=== PATIENT | female | born 1945 | race Caucasian/White ===

== ENCOUNTER 2016-03-17 14:00 | Outpatient (CLI) | payer MEDICARE | END 2016-03-17 14:01 | disposition home or self-care (01) | DX: D68.51 Activated protein C resistance (principal); Z79.01 Long term (current) use of anticoagulants ==

== ENCOUNTER 2016-03-20 10:03 | Outpatient (CLI) | payer MEDICARE | END 2016-03-20 10:04 | disposition home or self-care (01) | DX: D68.51 Activated protein C resistance (principal); Z79.01 Long term (current) use of anticoagulants ==

== ENCOUNTER 2016-04-01 14:30 | Outpatient (CLI) | payer MEDICARE | END 2016-04-01 14:31 | disposition home or self-care (01) | DX: D68.51 Activated protein C resistance (principal); Z79.01 Long term (current) use of anticoagulants ==

== ENCOUNTER 2016-04-08 15:05 | Outpatient (CLI) | payer MEDICARE | END 2016-04-08 15:06 | disposition home or self-care (01) | DX: D68.51 Activated protein C resistance (principal); Z79.01 Long term (current) use of anticoagulants ==

== ENCOUNTER 2016-04-16 14:34 | Outpatient (CLI) | payer MEDICARE | END 2016-04-16 14:35 | disposition home or self-care (01) | DX: Z79.01 Long term (current) use of anticoagulants (principal) ==

== ENCOUNTER 2016-04-23 14:23 | Outpatient (CLI) | payer MEDICARE | END 2016-04-23 14:24 | disposition home or self-care (01) | DX: D68.51 Activated protein C resistance (principal); Z79.01 Long term (current) use of anticoagulants ==

== ENCOUNTER 2016-05-07 10:54 | Outpatient (CLI) | payer MEDICARE | END 2016-05-07 10:55 | disposition home or self-care (01) | DX: D68.51 Activated protein C resistance (principal); Z79.01 Long term (current) use of anticoagulants ==

== ENCOUNTER 2016-05-14 13:05 | Outpatient (CLI) | payer MEDICARE | END 2016-05-14 13:06 | disposition home or self-care (01) | DX: D68.51 Activated protein C resistance (principal); Z79.01 Long term (current) use of anticoagulants ==

== ENCOUNTER 2016-05-28 13:17 | Outpatient (CLI) | payer MEDICARE | END 2016-05-28 13:18 | disposition home or self-care (01) | DX: D68.51 Activated protein C resistance (principal); Z79.01 Long term (current) use of anticoagulants ==

== ENCOUNTER 2016-06-08 11:09 | Outpatient (CLI) | payer MEDICARE | END 2016-06-08 11:10 | disposition home or self-care (01) | DX: D68.51 Activated protein C resistance (principal); Z79.01 Long term (current) use of anticoagulants ==

== ENCOUNTER 2016-06-23 12:52 | Outpatient (CLI) | payer MEDICARE | END 2016-06-23 12:53 | disposition home or self-care (01) | DX: D68.51 Activated protein C resistance (principal); Z79.01 Long term (current) use of anticoagulants ==

== ENCOUNTER 2016-07-10 08:00 | Outpatient (CLI) | payer MEDICARE | END 2016-07-10 08:01 | disposition home or self-care (01) | DX: D68.51 Activated protein C resistance (principal); Z79.01 Long term (current) use of anticoagulants ==

== ENCOUNTER 2016-07-27 14:37 | Outpatient (CLI) | payer MEDICARE | END 2016-07-27 14:38 | disposition home or self-care (01) | DX: D68.51 Activated protein C resistance (principal); Z79.01 Long term (current) use of anticoagulants ==

== ENCOUNTER 2016-08-11 12:41 | Outpatient (CLI) | payer MEDICARE | END 2016-08-11 12:42 | disposition home or self-care (01) | LOC: LAB.F 12:41 | PROVIDERS: ATTEND Internal Medicine | DX: D68.51 Activated protein C resistance (principal) | CPT/HCPCS: 85610 ==

== ENCOUNTER 2016-08-26 13:37 | Outpatient (CLI) | payer MEDICARE | END 2016-08-26 13:38 | disposition home or self-care (01) | LOC: LAB.F 13:37 | PROVIDERS: ATTEND Registered Nurse | DX: D68.51 Activated protein C resistance (principal) | CPT/HCPCS: 85610 ==

== ENCOUNTER 2016-08-27 17:14 | Outpatient (CLI) | payer MEDICARE ==
--- NOTE | 2016-08-28 10:15 | XRAY Report ---
TWO VIEW THORACIC SPINE: 08/27/2016 CLINICAL INDICATION: Pain. FINDINGS: Frontal and lateral standing views of the thoracic spine demonstrate moderate degenerative disk disease. There is no evidence of acute fracture. No paraspinal hematoma is seen. IMPRESSION: MODERATE DEGENERATIVE CHANGES. NO EVIDENCE OF ACUTE FRACTURE. JOB #: [id number] EXT JOB #:[id number]
--- NOTE | 2016-08-28 10:16 | XRAY Report ---
TWO-VIEW LUMBAR SPINE: 08/27/2016 CLINICAL INDICATION: Pain. FINDINGS: Frontal and lateral standing views of the lumbar spine demonstrate moderate degenerative d isc and facet disease, with mild degenerative levoscoliosis. There is no evidence of compression fra cture. Vascular calcifications are noted. The bowel gas pattern is normal. Postoperative changes o f cholecystectomy are noted. IMPRESSION: MODERATE DEGENERATIVE CHANGES, WITH MILD DEGENERATIVE LEVOSCOLIOSIS. JOB #: [id number] EXT JOB #:[id number]
== END 2016-08-27 17:15 | disposition home or self-care (01) ==
LOC: DI 17:14
PROVIDERS: ATTEND Nurse Practitioner Family
DX: M51.36 Other intervertebral disc degeneration, lumbar region (principal); M47.896 Other spondylosis, lumbar region; M41.56 Other secondary scoliosis, lumbar region; M51.34 Other intervertebral disc degeneration, thoracic region
CPT/HCPCS: 72070; 72100

== ENCOUNTER 2016-09-07 14:36 | Outpatient (CLI) | payer MEDICARE | END 2016-09-07 14:37 | disposition home or self-care (01) | LOC: LAB.F 14:36 | PROVIDERS: ATTEND Internal Medicine | DX: D68.51 Activated protein C resistance (principal) | CPT/HCPCS: 85610 ==

== ENCOUNTER 2016-10-12 14:24 | Outpatient (CLI) | payer MEDICARE | END 2016-10-12 14:25 | disposition home or self-care (01) | LOC: LAB.R 14:24 | PROVIDERS: ATTEND Internal Medicine | DX: D68.51 Activated protein C resistance (principal) | CPT/HCPCS: 85610 ==

== ENCOUNTER 2016-10-20 13:09 | Outpatient (CLI) | payer MEDICARE | END 2016-10-20 13:10 | disposition home or self-care (01) | LOC: LAB.F 13:09 | PROVIDERS: ATTEND Registered Nurse | DX: D68.51 Activated protein C resistance (principal) | CPT/HCPCS: 85610 ==

== ENCOUNTER 2016-11-02 13:05 | Outpatient (CLI) | payer MEDICARE | END 2016-11-02 13:06 | disposition home or self-care (01) | LOC: LAB.F 13:05 | PROVIDERS: ATTEND Internal Medicine | DX: D68.51 Activated protein C resistance (principal) | CPT/HCPCS: 85610 ==

== ENCOUNTER 2016-11-10 11:52 | Outpatient (CLI) | payer MEDICARE ==
--- NOTE | 2016-11-11 14:21 | Mammography Report ---
DIGITAL SCREENING MAMMOGRAM: 11/10/2016 CLINICAL INDICATION: A 71-year-old with history of benign biopsy, for screening. COMPARISON: 08/2015, 04/2014, 04/2013, 02/2012, 02/2010. TECHNIQUE: Routine CC and MLO projections were obtained of the breasts. Bilateral laterally exaggera anand craniocaudal views. FINDINGS: Scattered fibroglandular tissue is present within the breasts. There are no dominant mychal s, suspicious microcalcifications, or secondary signs of malignancy. In comparison to the previous st udies, there are no significant changes. ASSESSMENT: NO MAMMOGRAPHIC EVIDENCE OF MALIGNANCY. NO SIGNIFICANT INTERVAL CHANGES. RECOMMENDATION: Screening mammography is recommended annually. BIRADS category 1 - negative. STANDARD QUALIFYING STATEMENTS 1. This examination was reviewed with the aid of Computed-Aided Detection (CAD). 2. A negative or benign imaging report should not delay biopsy if clinically suspicious findings are present. Consider surgical consultation if warranted. More than 5% of cancers are not identified by i maging. 3. Dense breasts may obscure an underlying neoplasm. JOB #: [id number] EXT JOB #:[id number]
== END 2016-11-10 11:53 | disposition home or self-care (01) ==
LOC: DI.S 11:52
PROVIDERS: ATTEND Registered Nurse
DX: Z12.31 Encounter for screening mammogram for malignant neoplasm of breast (principal)
CPT/HCPCS: 77067

== ENCOUNTER 2016-11-20 10:53 | Outpatient (CLI) | payer MEDICARE | END 2016-11-20 10:54 | disposition home or self-care (01) | LOC: LAB.F 10:53 | PROVIDERS: ATTEND Internal Medicine | DX: D68.51 Activated protein C resistance (principal); Z79.01 Long term (current) use of anticoagulants | CPT/HCPCS: 85610 ==

== ENCOUNTER 2016-11-27 11:03 | Outpatient (CLI) | payer MEDICARE | END 2016-11-27 11:04 | disposition home or self-care (01) | LOC: LAB.F 11:03 | PROVIDERS: ATTEND Internal Medicine | DX: D68.51 Activated protein C resistance (principal); Z79.01 Long term (current) use of anticoagulants | CPT/HCPCS: 85610 ==

== ENCOUNTER 2016-12-04 12:56 | Outpatient (CLI) | payer MEDICARE | END 2016-12-04 12:57 | disposition home or self-care (01) | LOC: LAB.F 12:56 | PROVIDERS: ATTEND Internal Medicine | DX: D68.51 Activated protein C resistance (principal); Z79.01 Long term (current) use of anticoagulants | CPT/HCPCS: 85610 ==

== ENCOUNTER 2016-12-11 15:01 | Outpatient (CLI) | payer MEDICARE | END 2016-12-11 15:02 | disposition home or self-care (01) | LOC: LAB.F 15:01 | PROVIDERS: ATTEND Internal Medicine | DX: D68.51 Activated protein C resistance (principal); Z79.01 Long term (current) use of anticoagulants | CPT/HCPCS: 85610 ==

== ENCOUNTER 2016-12-18 13:09 | Outpatient (CLI) | payer MEDICARE | END 2016-12-18 13:10 | disposition home or self-care (01) | LOC: LAB.F 13:09 | PROVIDERS: ATTEND Internal Medicine | DX: D68.51 Activated protein C resistance (principal); Z79.01 Long term (current) use of anticoagulants | CPT/HCPCS: 85610 ==

== ENCOUNTER 2016-12-29 08:17 | Outpatient (CLI) | payer MEDICARE | END 2016-12-29 08:18 | disposition home or self-care (01) | LOC: LAB.F 08:17 | PROVIDERS: ATTEND Internal Medicine | DX: D68.51 Activated protein C resistance (principal); Z79.01 Long term (current) use of anticoagulants | CPT/HCPCS: 85610 ==

== ENCOUNTER 2017-01-04 13:09 | Outpatient (CLI) | payer MEDICARE | END 2017-01-04 13:10 | disposition home or self-care (01) | LOC: LAB.F 13:09 | PROVIDERS: ATTEND Internal Medicine | DX: D68.51 Activated protein C resistance (principal); Z79.01 Long term (current) use of anticoagulants | CPT/HCPCS: 85610 ==

== ENCOUNTER 2017-03-03 10:43 | Outpatient (CLI) | payer MEDICARE | END 2017-03-03 10:44 | disposition home or self-care (01) | LOC: LAB.F 10:43 | PROVIDERS: ATTEND Internal Medicine | DX: D68.51 Activated protein C resistance (principal); Z79.01 Long term (current) use of anticoagulants | CPT/HCPCS: 85610 ==

== ENCOUNTER 2017-03-24 15:52 | Outpatient (CLI) | payer MEDICARE | END 2017-03-24 15:53 | LOC: LAB.F 15:52 | PROVIDERS: ATTEND Internal Medicine | DX: D68.51 Activated protein C resistance (principal); Z79.01 Long term (current) use of anticoagulants | CPT/HCPCS: 85610 ==

== ENCOUNTER 2017-04-02 09:29 | Outpatient (CLI) | payer MEDICARE | END 2017-04-02 09:30 | disposition home or self-care (01) | LOC: LAB.F 09:29 | PROVIDERS: ATTEND Internal Medicine | DX: D68.51 Activated protein C resistance (principal); Z79.01 Long term (current) use of anticoagulants | CPT/HCPCS: 85610 ==

== ENCOUNTER 2017-04-12 15:02 | Outpatient (CLI) | payer MEDICARE | END 2017-04-12 15:03 | disposition home or self-care (01) | LOC: LAB.F 15:02 | PROVIDERS: ATTEND Internal Medicine | DX: D68.51 Activated protein C resistance (principal); Z79.01 Long term (current) use of anticoagulants | CPT/HCPCS: 85610 ==

== ENCOUNTER 2017-04-28 10:05 | Outpatient (CLI) | payer MEDICARE | END 2017-04-28 10:06 | disposition home or self-care (01) | LOC: LAB.F 10:05 | PROVIDERS: ATTEND Internal Medicine | DX: D68.51 Activated protein C resistance (principal); Z79.01 Long term (current) use of anticoagulants | CPT/HCPCS: 85610 ==

== ENCOUNTER 2017-05-10 10:40 | Outpatient (CLI) | payer MEDICARE | END 2017-05-10 10:41 | disposition home or self-care (01) | LOC: LAB.F 10:40 | PROVIDERS: ATTEND Registered Nurse | DX: D68.51 Activated protein C resistance (principal); Z79.01 Long term (current) use of anticoagulants | CPT/HCPCS: 85610 ==

== ENCOUNTER 2017-06-01 13:30 | Outpatient (CLI) | payer MEDICARE | END 2017-06-01 13:31 | disposition home or self-care (01) | LOC: LAB.F 13:30 | PROVIDERS: ATTEND Internal Medicine | DX: D68.51 Activated protein C resistance (principal); Z79.01 Long term (current) use of anticoagulants | CPT/HCPCS: 85610 ==

== ENCOUNTER 2017-06-16 14:21 | Outpatient (CLI) | payer MEDICARE | END 2017-06-16 14:22 | disposition home or self-care (01) | LOC: LAB.F 14:21 | PROVIDERS: ATTEND Internal Medicine | DX: D68.51 Activated protein C resistance (principal); Z79.01 Long term (current) use of anticoagulants | CPT/HCPCS: 85610 ==

== ENCOUNTER 2017-06-21 11:22 | Outpatient (CLI) | payer MEDICARE | END 2017-06-21 11:23 | disposition home or self-care (01) | LOC: LAB.F 11:22 | PROVIDERS: ATTEND Internal Medicine | DX: D68.51 Activated protein C resistance (principal); Z79.01 Long term (current) use of anticoagulants | CPT/HCPCS: 85610 ==

== ENCOUNTER 2017-07-05 13:10 | Outpatient (CLI) | payer MEDICARE | END 2017-07-05 13:11 | disposition home or self-care (01) | LOC: LAB.F 13:10 | PROVIDERS: ATTEND Internal Medicine | DX: D68.51 Activated protein C resistance (principal); Z79.01 Long term (current) use of anticoagulants | CPT/HCPCS: 85610 ==

== ENCOUNTER 2017-07-19 12:36 | Outpatient (CLI) | payer MEDICARE | END 2017-07-19 12:37 | disposition home or self-care (01) | LOC: LAB.F 12:36 | PROVIDERS: ATTEND Internal Medicine | DX: D68.51 Activated protein C resistance (principal); Z79.01 Long term (current) use of anticoagulants | CPT/HCPCS: 85610 ==

== ENCOUNTER 2017-08-11 13:31 | Outpatient (CLI) | payer MEDICARE | END 2017-08-11 13:32 | disposition home or self-care (01) | LOC: LAB.F 13:31 | PROVIDERS: ATTEND Internal Medicine | DX: D68.51 Activated protein C resistance (principal); Z79.01 Long term (current) use of anticoagulants | CPT/HCPCS: 85610 ==

== ENCOUNTER 2017-08-18 08:00 | Outpatient (CLI) | payer MEDICARE | END 2017-08-18 08:01 | disposition home or self-care (01) | LOC: LAB.F 08:00 | PROVIDERS: ATTEND Internal Medicine | DX: D68.51 Activated protein C resistance (principal); Z79.01 Long term (current) use of anticoagulants | CPT/HCPCS: 85610 ==

== ENCOUNTER 2017-09-29 14:25 | Outpatient (CLI) | payer MEDICARE | END 2017-09-29 14:26 | disposition home or self-care (01) | LOC: LAB.F 14:25 | PROVIDERS: ATTEND Internal Medicine | DX: D68.51 Activated protein C resistance (principal); Z79.01 Long term (current) use of anticoagulants | CPT/HCPCS: 85610 ==

== ENCOUNTER 2017-10-12 11:16 | Outpatient (CLI) | payer MEDICARE | END 2017-10-12 11:17 | disposition home or self-care (01) | LOC: LAB.F 11:16 | PROVIDERS: ATTEND Internal Medicine | DX: D68.51 Activated protein C resistance (principal); Z79.01 Long term (current) use of anticoagulants | CPT/HCPCS: 85610 ==

== ENCOUNTER 2017-10-27 10:00 | Outpatient (CLI) | payer MEDICARE | END 2017-10-27 10:01 | disposition home or self-care (01) | LOC: LAB.F 10:00 | PROVIDERS: ATTEND Internal Medicine | DX: D68.51 Activated protein C resistance (principal); Z79.01 Long term (current) use of anticoagulants | CPT/HCPCS: 85610 ==

== ENCOUNTER 2017-11-17 14:22 | Outpatient (CLI) | payer MEDICARE | END 2017-11-17 14:23 | disposition home or self-care (01) | LOC: LAB.F 14:22 | PROVIDERS: ATTEND Registered Nurse | DX: D68.51 Activated protein C resistance (principal); Z79.01 Long term (current) use of anticoagulants | CPT/HCPCS: 85610 ==

== ENCOUNTER 2018-01-04 13:28 | Outpatient (CLI) | payer MEDICARE | END 2018-01-04 13:29 | disposition home or self-care (01) | LOC: LAB.F 13:28 | PROVIDERS: ATTEND Registered Nurse | DX: D68.51 Activated protein C resistance (principal); Z79.01 Long term (current) use of anticoagulants | CPT/HCPCS: 85610 ==

== ENCOUNTER 2018-01-12 13:23 | Outpatient (CLI) | payer MEDICARE | END 2018-01-12 13:24 | disposition home or self-care (01) | LOC: LAB.F 13:23 | PROVIDERS: ATTEND Registered Nurse | DX: D68.51 Activated protein C resistance (principal); Z79.01 Long term (current) use of anticoagulants | CPT/HCPCS: 85610 ==

== ENCOUNTER 2018-01-21 14:11 | Outpatient (CLI) | payer MEDICARE ==
[2018-01-21 17:53] LABS: INR 3.2 (0.8-1.2); PT - PROTHROMBIN TIME 36.2 secs (9.9-12.6)
== END 2018-01-21 14:12 | disposition home or self-care (01) ==
LOC: LAB.F 14:11
PROVIDERS: ATTEND Registered Nurse
DX: Z79.01 Long term (current) use of anticoagulants (principal)
CPT/HCPCS: 36415; 85610

== ENCOUNTER 2018-02-14 13:31 | Outpatient (CLI) | payer MEDICARE | END 2018-02-14 13:32 | disposition home or self-care (01) | LOC: LAB.F 13:31 | PROVIDERS: ATTEND Registered Nurse | DX: D68.51 Activated protein C resistance (principal); Z79.01 Long term (current) use of anticoagulants | CPT/HCPCS: 85610 ==

== ENCOUNTER 2018-02-21 11:36 | Outpatient (CLI) | payer MEDICARE | END 2018-02-21 23:59 | disposition home or self-care (01) | LOC: LAB.S 11:36 | PROVIDERS: ATTEND Registered Nurse | DX: D68.51 Activated protein C resistance (principal); Z79.01 Long term (current) use of anticoagulants | CPT/HCPCS: 85610 ==

== ENCOUNTER 2018-03-01 13:47 | Outpatient (CLI) | payer MEDICARE | END 2018-03-01 13:48 | disposition home or self-care (01) | LOC: LAB.F 13:47 | PROVIDERS: ATTEND Registered Nurse | DX: D68.51 Activated protein C resistance (principal); Z79.01 Long term (current) use of anticoagulants | CPT/HCPCS: 85610 ==

== ENCOUNTER 2018-03-14 08:00 | Outpatient (CLI) | payer MEDICARE | END 2018-03-14 23:59 | disposition home or self-care (01) | LOC: LAB.S 08:00 | PROVIDERS: ATTEND Registered Nurse | DX: D68.51 Activated protein C resistance (principal) | CPT/HCPCS: 85610 ==

== ENCOUNTER 2018-03-25 15:49 | Outpatient (CLI) | payer MEDICARE | END 2018-03-25 15:50 | disposition home or self-care (01) | LOC: LAB.F 15:49 | PROVIDERS: ATTEND Registered Nurse | DX: D68.51 Activated protein C resistance (principal); Z79.01 Long term (current) use of anticoagulants | CPT/HCPCS: 85610 ==

== ENCOUNTER 2018-04-04 14:54 | Outpatient (CLI) | payer MEDICARE | END 2018-04-04 14:55 | disposition home or self-care (01) | LOC: LAB.F 14:54 | PROVIDERS: ATTEND Registered Nurse | DX: D68.51 Activated protein C resistance (principal); Z79.01 Long term (current) use of anticoagulants | CPT/HCPCS: 85610 ==

== ENCOUNTER 2018-04-14 13:32 | Outpatient (CLI) | payer MEDICARE | END 2018-04-14 13:33 | disposition home or self-care (01) | LOC: LAB.F 13:32 | PROVIDERS: ATTEND Registered Nurse | DX: D68.51 Activated protein C resistance (principal); Z79.01 Long term (current) use of anticoagulants | CPT/HCPCS: 85610 ==

== ENCOUNTER 2018-04-20 08:27 | Outpatient (CLI) | payer MEDICARE ==
--- NOTE | 2018-04-20 09:30 | Mammography Report ---
Reason: ENCOUNTER FOR SCREENING MAMMOGRAM FOR MALIGNANT NE Procedure Date: 04/20/2018 Accession Number: [id number] / [id number] Procedure: PAULO - Screening Mammo w/Bj CPT Code: FULL RESULT: EXAM: Screening Mammo w/Bj DATE: 04/20/2018 8:52 AM CLINICAL HISTORY: Routine screening. No reported personal history of breast cancer. Family history in sister at age 50 and a cousin at age 45 TECHNIQUE: Bilateral CC and MLO views were obtained. COMPARISON: 11/10/2016 through 04/19/2013 FINDINGS: The breasts demonstrate scattered fibroglandular densities bilaterally. Bilateral breasts: There are no suspicious masses, calcifications or areas of distortion. IMPRESSION: Negative examination RECOMMENDATION: Routine annual screening unless otherwise clinically indicated. BI-RADS CATEGORY 1: Negative STANDARD QUALIFYING STATEMENTS: 1. This examination was not reviewed with the aid of Computer-Aided Detection (CAD). 2. A negative or benign imaging report should not preclude biopsy if clinically suspicious findings are present. 3. Dense breasts may obscure an underlying neoplasm. 4. This examination was reviewed with the aid of 3D breast imaging (tomosynthesis).
== END 2018-04-20 08:28 | disposition home or self-care (01) ==
LOC: DI 08:27
PROVIDERS: ATTEND Registered Nurse
DX: Z12.31 Encounter for screening mammogram for malignant neoplasm of breast (principal); Z80.3 Family history of malignant neoplasm of breast
CPT/HCPCS: 77063; 77067

== ENCOUNTER 2018-05-02 08:43 | Outpatient (CLI) | payer MEDICARE | END 2018-05-02 08:44 | disposition home or self-care (01) | LOC: LAB.F 08:43 | PROVIDERS: ATTEND Registered Nurse | DX: D68.51 Activated protein C resistance (principal); Z79.01 Long term (current) use of anticoagulants | CPT/HCPCS: 85610 ==

== ENCOUNTER 2018-05-18 11:00 | Outpatient (CLI) | payer MEDICARE | END 2018-05-18 11:01 | disposition home or self-care (01) | LOC: LAB.F 11:00 | PROVIDERS: ATTEND Registered Nurse | DX: D68.51 Activated protein C resistance (principal); Z79.01 Long term (current) use of anticoagulants | CPT/HCPCS: 85610 ==

== ENCOUNTER 2018-05-26 13:21 | Outpatient (CLI) | payer MEDICARE | END 2018-05-26 13:22 | disposition home or self-care (01) | LOC: LAB.F 13:21 | PROVIDERS: ATTEND Registered Nurse | DX: D68.51 Activated protein C resistance (principal); Z79.01 Long term (current) use of anticoagulants | CPT/HCPCS: 85610 ==

== ENCOUNTER 2018-06-02 11:32 | Outpatient (CLI) | payer MEDICARE | END 2018-06-02 11:33 | disposition home or self-care (01) | LOC: LAB.F 11:32 | PROVIDERS: ATTEND Registered Nurse | DX: D68.51 Activated protein C resistance (principal); Z79.01 Long term (current) use of anticoagulants | CPT/HCPCS: 85610 ==

== ENCOUNTER 2018-06-17 13:43 | Outpatient (CLI) | payer MEDICARE | END 2018-06-17 13:44 | disposition home or self-care (01) | LOC: LAB.F 13:43 | PROVIDERS: ATTEND Registered Nurse | DX: D68.51 Activated protein C resistance (principal); Z79.01 Long term (current) use of anticoagulants | CPT/HCPCS: 85610 ==

== ENCOUNTER 2018-06-29 13:34 | Outpatient (CLI) | payer MEDICARE | END 2018-06-29 13:35 | disposition home or self-care (01) | LOC: LAB.F 13:34 | PROVIDERS: ATTEND Registered Nurse | DX: D68.51 Activated protein C resistance (principal); Z79.01 Long term (current) use of anticoagulants | CPT/HCPCS: 85610 ==

== ENCOUNTER 2018-08-01 13:12 | Outpatient (CLI) | payer MEDICARE | END 2018-08-01 13:13 | disposition home or self-care (01) | LOC: LAB 13:12 | PROVIDERS: ATTEND Registered Nurse | DX: D68.51 Activated protein C resistance (principal); Z79.01 Long term (current) use of anticoagulants | CPT/HCPCS: 85610 ==

== ENCOUNTER 2018-08-11 14:20 | Outpatient (CLI) | payer MEDICARE | END 2018-08-11 14:21 | disposition home or self-care (01) | LOC: LAB.F 14:20 | PROVIDERS: ATTEND Registered Nurse | DX: D68.51 Activated protein C resistance (principal); Z79.01 Long term (current) use of anticoagulants | CPT/HCPCS: 85610 ==

== ENCOUNTER 2018-08-23 12:39 | Outpatient (CLI) | payer MEDICARE | END 2018-08-23 12:40 | disposition home or self-care (01) | LOC: LAB.F 12:39 | PROVIDERS: ATTEND Registered Nurse | DX: D68.51 Activated protein C resistance (principal); Z79.01 Long term (current) use of anticoagulants | CPT/HCPCS: 85610 ==

== ENCOUNTER 2018-08-30 12:34 | Outpatient (CLI) | payer MEDICARE | END 2018-08-30 12:35 | disposition home or self-care (01) | LOC: LAB.F 12:34 | PROVIDERS: ATTEND Registered Nurse | DX: D68.51 Activated protein C resistance (principal); Z79.01 Long term (current) use of anticoagulants | CPT/HCPCS: 85610 ==

== ENCOUNTER 2018-09-06 08:00 | Outpatient (CLI) | payer MEDICARE | END 2018-09-06 23:59 | disposition home or self-care (01) | LOC: LAB.F 08:00 | PROVIDERS: ATTEND Registered Nurse | DX: D68.51 Activated protein C resistance (principal); Z79.01 Long term (current) use of anticoagulants | CPT/HCPCS: 85610 ==

== ENCOUNTER 2018-09-19 15:11 | Outpatient (CLI) | payer MEDICARE | END 2018-09-19 15:12 | disposition home or self-care (01) | LOC: LAB.S 15:11 | PROVIDERS: ATTEND Registered Nurse | DX: D68.51 Activated protein C resistance (principal); Z79.01 Long term (current) use of anticoagulants | CPT/HCPCS: 85610 ==

== ENCOUNTER 2018-10-25 11:38 | Emergency (ER) | payer MEDICARE ==
[2018-10-25 12:02] LABS: BASOPHILS # (AUTO) 0.1 10^3/uL (0.0-0.1); BASOPHILS % (AUTO) 0.6 %; EOSINOPHILS # (AUTO) 0.2 10^3/uL (0.0-0.7); EOSINOPHILS % (AUTO) 1.8 %; HGB - HEMOGLOBIN 13.7 g/dL (12.0-16.0); LYMPHOCYTES # (AUTO) 1.8 10^3/uL (1.5-3.5); LYMPHOCYTES % (AUTO) 21.6 %; MEAN CORPUSCULAR HEMOGLOBIN 31.4 pg (27.0-31.0); MEAN CORPUSCULAR HGB CONC 32.6 g/dL (32.0-36.0); MEAN CORPUSCULAR VOLUME 96.3 fL (81.0-99.0); MEAN PLATELET VOLUME 9.4 fL (7.9-10.8); MONOCYTES # (AUTO) 0.6 10^3/uL (0.0-1.0); NEUTROPHILS # (AUTO) 5.6 10^3/uL (1.5-6.6); NEUTROPHILS % (AUTO) 68.6 %; PLT - PLATELET COUNT 243 10^3/uL (130-450); RED BLOOD COUNT 4.36 10^6/uL (4.20-5.40); RED CELL DISTRIBUTION WIDTH 13.5 % (12.0-15.0); WHITE BLOOD COUNT 8.1 x10^3/uL (4.8-10.8)
[2018-10-25 12:07] LABS: INR 1.6 (0.8-1.2); PT - PROTHROMBIN TIME 18.2 secs (9.9-12.6)
[2018-10-25 12:14] LABS: ALBUMIN 4.4 g/dL (3.2-5.5); ALBUMIN/GLOBULIN RATIO 1.3 (1.0-2.2); BILIRUBIN,TOTAL 1.5 mg/dL (0.2-1.0); CALCIUM 10.3 mg/dL (8.5-10.3); CREATININE 0.6 mg/dL (0.4-1.0); TOTAL PROTEIN 7.7 g/dL (6.7-8.2)
[2018-10-25] MEDS ORDERED: MECLIZINE 12.5 MG TABLET PO STA (12:21)
[2018-10-25] MEDS ORDERED: ONDANSETRON 4 MG/2 ML VIAL IVP STA (12:21)
--- NOTE | 2018-10-25 12:22 | ED Physician Documentation ---
History of Present Illness - Stated complaint Stated Complaint: DIZZY, - Chief complaint Chief Complaint: Neuro - History obtained from History obtained from: Patient, Family - History of Present Illness Timing: How many days ago (3) Pain level max: 3 Pain level now: 2 - Additonal information Additional information: 73-year-old female presents to the emergency department stating that she has felt dizzy intermittently for the past 2 to 3 days. She states it is worse with movement, better with lying still. She feels like the room is spinning around her. She did hit her head on a cabinet 2 to 3 days ago. She is on warfarin. No focal numbness or tingling. No changes in her vision. No changes in taste. No URI symptoms Review of Systems Ten Systems: 10 systems reviewed and negative Constitutional: denies: Fever, Chills Eyes: denies: Decreased vision, Photophobia Ears: denies: Loss of hearing, Ear pain, Drainage/discharge Nose: denies: Rhinorrhea / runny nose, Congestion Throat: denies: Sore throat Cardiac: denies: Chest pain / pressure, Palpitations Respiratory: denies: Dyspnea, Cough, Wheezing GI: reports: Nausea (States she feels very nauseated when she starts to walk), Vomiting. 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 HEENT: Tonsil/Adenoidectomy - Present Medications Home Medications: Ambulatory Orders Medication Instructions Recorded Confirmed Diclofenac Sodium 100 gm TP 02/29/16 02/29/16 Lisinopril [Zestril] 40 mg PO 02/29/16 Omeprazole [PriLOSEC] 20 mg PO DAILY 02/29/16 02/29/16 Warfarin Sodium [Coumadin] 10 mg PO 02/29/16 Meclizine [Antivert] 12.5 - 25 mg PO Q6H PRN #30 tablet 10/25/18 Ondansetron Odt [Zofran] 4 mg TL Q6H PRN #10 tablet 10/25/18 - Allergies Allergies/Adverse Reactions: Allergies Allergy/AdvReac Type Severity Reaction Status Date / Time Iodine and Iodide Containing Allergy Unknown Verified 10/25/18 11:51 Produc - Social History Does the pt smoke?: No Smoking Status: Never smoker Does the pt drink ETOH?: Yes Does the pt have substance abuse?: No PD ED PE NORMAL - Vitals Vital signs reviewed: Yes - General General: Alert and oriented X 3, No acute distress - HEENT HEENT: Atraumatic, PERRL, EOMI, Ears normal, Moist mucous membranes, Pharynx benign - Neck Neck: Supple, no meningeal sign, No bony TTP - Cardiac Cardiac: RRR, Strong equal pulses - Respiratory Respiratory: No respiratory distress, Clear bilaterally - Abdomen Abdomen: Soft, Non tender, Non distended - Back Back: No CVA TTP, No spinal TTP - Derm Derm: Warm and dry, No rash - Extremities Extremities: No edema - Neuro Neuro: Alert and oriented X 3, 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 Horizontal nystagmus. Results - Vitals Vitals: Vital Signs - 24 hr 10/25/18 10/25/18 10/25/18 11:46 12:20 12:30 Temperature 36.7 C Heart Rate 65 69 65 Respiratory 19 16 11 L Rate Blood Pressure 173/86 H 154/74 H 145/73 H O2 Saturation 96 96 97 10/25/18 10/25/18 13:00 13:35 Temperature Heart Rate 73 61 Respiratory 20 12 Rate Blood Pressure 135/107 H 139/79 H O2 Saturation 96 96 Oxygen O2 Source Room air - Labs Labs: Laboratory Tests 10/25/18 10/25/18 10/25/18 11:55 11:55 11:55 WBC 8.1 RBC 4.36 Hgb 13.7 Hct 42.0 MCV 96.3 MCH 31.4 H MCHC 32.6 RDW 13.5 Plt Count 243 MPV 9.4 Neut # (Auto) 5.6 Lymph # (Auto) 1.8 [place] # (Auto) 0.6 Eos # (Auto) 0.2 Baso # (Auto) 0.1 Absolute Nucleated RBC 0.00 Nucleated RBC % 0.0 PT 18.2 H INR 1.6 H Sodium 142 Potassium 3.7 Chloride 107 Carbon Dioxide 22 Anion Gap 13.0 BUN 17 Creatinine 0.6 Estimated GFR (MDRD) 98 Glucose 146 H POC Whole Bld Glucose Calcium 10.3 Total Bilirubin 1.5 H AST 29 ALT 28 Alkaline Phosphatase 63 Total Protein 7.7 Albumin 4.4 Globulin 3.3 Albumin/Globulin Ratio 1.3 Lipase 27 10/25/18 12:09 WBC RBC Hgb Hct MCV MCH MCHC RDW Plt Count MPV Neut # (Auto) Lymph # (Auto) [place] # (Auto) Eos # (Auto) Baso # (Auto) Absolute Nucleated RBC Nucleated RBC % PT INR Sodium Potassium Chloride Carbon Dioxide Anion Gap BUN Creatinine Estimated GFR (MDRD) Glucose POC Whole Bld Glucose 141 H Calcium Total Bilirubin AST ALT Alkaline Phosphatase Total Protein Albumin Globulin Albumin/Globulin Ratio Lipase - Rads (name of study) Head CT Radiology: Prelim report reviewed, EMP read contemporaneously, See rad report (normal) Cervical spine CT Radiology: Prelim report reviewed, EMP read contemporaneously, See rad report (normal) PD MEDICAL DECISION MAKING - ED course Complexity details: reviewed results, re-evaluated patient, considered differential, d/w patient ED course: 73-year-old female with what appears to be vertigo. Likely BPPV. Feels much better after meclizine and Zofran. Normal cerebellar test. No evidence of posterior circulation stroke. NIH stroke scale of 0. Ambulating well. Tolerating p.o. without difficulty. We will follow-up with her PCP for further care. Patient counseled regarding signs and symptoms for which I believe and urgent re-evaluation would be necessary. Patient with good understanding of and agreement to plan and is comfortable going home at this time This document was made in part using voice recognition software. While efforts are made to proofread this document, sound alike and grammatical errors may occur. Departure - Departure Disposition: 01 Home, Self Care Clinical Impression: Vertigo Condition: Good Instructions: ED Vertigo Unspecified Follow-Up: Lovely Trinh ARNP [Primary Care Provider] - Within 1 week Prescriptions: Meclizine [Antivert] 12.5 - 25 mg PO Q6H PRN #30 tablet PRN Reason: Vertigo Ondansetron Odt [Zofran] 4 mg TL Q6H PRN #10 tablet PRN Reason: Nausea / Vomiting Comments: This should improve over the next day or 2. Follow-up with your doctor for further evaluation and care. Your INR is 1.6 today Discharge Date/Time: 10/25/18 13:39
--- NOTE | 2018-10-25 12:57 | CT Report ---
Reason: head injury 3 days ago Procedure Date: 10/25/2018 Accession Number: [id number] / [id number] Procedure: CT - CERVICAL SPINE WO CPT Code: FULL RESULT: EXAM: CT HEAD. CT SCAN OF THE CERVICAL SPINE. EXAM DATE: 10/25/2018 12:22 PM. CLINICAL HISTORY: Head injury 3 days ago. Vertigo. COMPARISON: CERVICAL SPINE W/O 10/25/2018 12:14 PM. TECHNIQUE: Noncontrast axial sections through the head and cervical spine. Reformats: Sagittal and coronal of the head, coronal and sagittal of the cervical spine. In accordance with CT protocol optimization, one or more of the following dose reduction techniques were utilized for this exam: automated exposure control, adjustment of mA and/or KV based on patient size, or use of iterative reconstructive technique. FINDINGS CT HEAD: Parenchyma: No intraparenchymal hemorrhage. No evidence of mass, midline shift. Martinez-white differentiation is distinct. Extraaxial Spaces: Basal cisterns are preserved. No subdural or epidural collections identified. Ventricles: Normal in size and position. Sinuses and orbits: Imaged paranasal sinuses, orbits, and mastoids show no significant abnormality. Bones: No evidence of fracture or calvarial defect. Other: None. FINDINGS CT CERVICAL SPINE: Alignment: Atlantooccipital relationship is preserved. No scoliosis or spondylolisthesis with the exception of potentially 1 mm of anterolisthesis of C6 on C7 which is not felt to be traumatic in nature. Bones: No fracture or bone lesion. Interspace Levels/Facets: C1-C2: Unremarkable. C2-C3: Unremarkable. C3-C4: Unremarkable. C4-C5: Left C4-C5 mild to moderate narrowing of the osseous neural foramen, otherwise unremarkable. C5-C6: Unremarkable. C6-C7: Unremarkable. C7-T1: Unremarkable. Spinal Canal: Normal. Musculature: Normal. No fatty atrophy. Other: The paravertebral and prevertebral soft tissues are unremarkable. The lung apices are clear. IMPRESSION: Head CT: Negative. Cervical Spine CT: Negative. RADIA
--- NOTE | 2018-10-25 12:58 | CT Report ---
Reason: head injury 3 days ago Procedure Date: 10/25/2018 Accession Number: [id number] / [id number] Procedure: CT - HEAD WO CPT Code: FULL RESULT: EXAM: CT HEAD. CT SCAN OF THE CERVICAL SPINE. EXAM DATE: 10/25/2018 12:22 PM. CLINICAL HISTORY: Head injury 3 days ago. Vertigo. COMPARISON: CERVICAL SPINE W/O 10/25/2018 12:14 PM. TECHNIQUE: Noncontrast axial sections through the head and cervical spine. Reformats: Sagittal and coronal of the head, coronal and sagittal of the cervical spine. In accordance with CT protocol optimization, one or more of the following dose reduction techniques were utilized for this exam: automated exposure control, adjustment of mA and/or KV based on patient size, or use of iterative reconstructive technique. FINDINGS CT HEAD: Parenchyma: No intraparenchymal hemorrhage. No evidence of mass, midline shift. Martinez-white differentiation is distinct. Extraaxial Spaces: Basal cisterns are preserved. No subdural or epidural collections identified. Ventricles: Normal in size and position. Sinuses and orbits: Imaged paranasal sinuses, orbits, and mastoids show no significant abnormality. Bones: No evidence of fracture or calvarial defect. Other: None. FINDINGS CT CERVICAL SPINE: Alignment: Atlantooccipital relationship is preserved. No scoliosis or spondylolisthesis with the exception of potentially 1 mm of anterolisthesis of C6 on C7 which is not felt to be traumatic in nature. Bones: No fracture or bone lesion. Interspace Levels/Facets: C1-C2: Unremarkable. C2-C3: Unremarkable. C3-C4: Unremarkable. C4-C5: Left C4-C5 mild to moderate narrowing of the osseous neural foramen, otherwise unremarkable. C5-C6: Unremarkable. C6-C7: Unremarkable. C7-T1: Unremarkable. Spinal Canal: Normal. Musculature: Normal. No fatty atrophy. Other: The paravertebral and prevertebral soft tissues are unremarkable. The lung apices are clear. IMPRESSION: Head CT: Negative. Cervical Spine CT: Negative. RADIA
[2018-10-25 13:40] VITALS: BP 139/79
== END 2018-10-25 13:39 | disposition home or self-care (01) ==
LOC: ED 11:38
DX: R42 Dizziness and giddiness (principal); I10 Essential (primary) hypertension; Z79.01 Long term (current) use of anticoagulants
CPT/HCPCS: 36415; 70450; 72125; 80053; 83690; 85025; 85610; 93005; 96374; 99284; A9270

== ENCOUNTER 2018-11-02 09:52 | Outpatient (CLI) | payer MEDICARE ==
[2018-11-02 17:55] LABS: ALBUMIN 4.2 g/dL (3.2-5.5); ALBUMIN/GLOBULIN RATIO 1.4 (1.0-2.2); BILIRUBIN,DIRECT 0.1 mg/dL (0.1-0.5); BILIRUBIN,INDIRECT 0.6 mg/dL; BILIRUBIN,TOTAL 0.7 mg/dL (0.2-1.0); CALCIUM 9.6 mg/dL (8.5-10.3); CREATININE 0.7 mg/dL (0.4-1.0); TOTAL PROTEIN 7.2 g/dL (6.7-8.2)
== END 2018-11-02 09:53 | disposition home or self-care (01) ==
LOC: LAB.S 09:52
PROVIDERS: ATTEND Nurse Practitioner Family
DX: D68.51 Activated protein C resistance (principal); Z79.01 Long term (current) use of anticoagulants; R17 Unspecified jaundice
CPT/HCPCS: 36415; 80053; 82247; 82248; 85610

== ENCOUNTER 2018-11-09 09:17 | Outpatient (CLI) | payer MEDICARE | END 2018-11-09 09:18 | disposition home or self-care (01) | LOC: LAB.S 09:17 | PROVIDERS: ATTEND Registered Nurse | DX: D68.51 Activated protein C resistance (principal); Z79.01 Long term (current) use of anticoagulants | CPT/HCPCS: 85610 ==

== ENCOUNTER 2018-11-29 15:09 | Outpatient (CLI) | payer MEDICARE | END 2018-11-29 15:10 | disposition home or self-care (01) | LOC: LAB.S 15:09 | PROVIDERS: ATTEND Registered Nurse | DX: D68.51 Activated protein C resistance (principal); Z79.01 Long term (current) use of anticoagulants | CPT/HCPCS: 85610 ==

== ENCOUNTER 2018-12-07 10:14 | Outpatient (CLI) | payer MEDICARE | END 2018-12-07 10:15 | disposition home or self-care (01) | LOC: LAB.S 10:14 | PROVIDERS: ATTEND Registered Nurse | DX: D68.51 Activated protein C resistance (principal); Z79.01 Long term (current) use of anticoagulants | CPT/HCPCS: 85610 ==

== ENCOUNTER 2019-01-02 10:54 | Outpatient (CLI) | payer MEDICARE | END 2019-01-02 10:55 | disposition home or self-care (01) | LOC: LAB.S 10:54 | PROVIDERS: ATTEND Registered Nurse | DX: D68.51 Activated protein C resistance (principal); Z79.01 Long term (current) use of anticoagulants | CPT/HCPCS: 85610 ==

== ENCOUNTER 2019-01-11 13:48 | Outpatient (CLI) | payer MEDICARE | END 2019-01-11 13:49 | disposition home or self-care (01) | LOC: LAB.S 13:48 | PROVIDERS: ATTEND Registered Nurse | DX: D68.51 Activated protein C resistance (principal); Z79.01 Long term (current) use of anticoagulants | CPT/HCPCS: 85610 ==

== ENCOUNTER 2019-02-17 13:11 | Outpatient (CLI) | payer MEDICARE | END 2019-02-17 13:12 | disposition home or self-care (01) | LOC: LAB.S 13:11 | PROVIDERS: ATTEND Registered Nurse | DX: D68.51 Activated protein C resistance (principal); Z79.01 Long term (current) use of anticoagulants | CPT/HCPCS: 85610 ==

== ENCOUNTER 2019-03-23 15:03 | Outpatient (CLI) | payer MEDICARE | END 2019-03-23 15:04 | disposition home or self-care (01) | LOC: LAB.S 15:03 | PROVIDERS: ATTEND Registered Nurse | DX: D68.51 Activated protein C resistance (principal); Z79.01 Long term (current) use of anticoagulants | CPT/HCPCS: 85610 ==

== ENCOUNTER 2019-04-05 14:46 | Outpatient (CLI) | payer MEDICARE | END 2019-04-05 14:47 | disposition home or self-care (01) | LOC: LAB.S 14:46 | PROVIDERS: ATTEND Registered Nurse | DX: Z79.01 Long term (current) use of anticoagulants (principal); D68.51 Activated protein C resistance | CPT/HCPCS: 85610 ==

== ENCOUNTER 2019-04-12 08:00 | Outpatient (CLI) | payer MEDICARE | END 2019-04-12 23:59 | disposition home or self-care (01) | LOC: LAB.S 08:00 | PROVIDERS: ATTEND Registered Nurse | DX: D68.51 Activated protein C resistance (principal); Z79.01 Long term (current) use of anticoagulants | CPT/HCPCS: 85610 ==

== ENCOUNTER 2019-05-03 08:36 | Outpatient (CLI) | payer MEDICARE | END 2019-05-03 08:37 | disposition home or self-care (01) | LOC: LAB.S 08:36 | PROVIDERS: ATTEND Registered Nurse | DX: D68.51 Activated protein C resistance (principal); Z79.01 Long term (current) use of anticoagulants | CPT/HCPCS: 85610 ==

== ENCOUNTER 2019-05-19 13:56 | Outpatient (CLI) | payer MEDICARE | END 2019-05-19 13:57 | disposition home or self-care (01) | LOC: LAB.S 13:56 | PROVIDERS: ATTEND Registered Nurse | DX: D68.51 Activated protein C resistance (principal); Z79.01 Long term (current) use of anticoagulants | CPT/HCPCS: 85610 ==

== ENCOUNTER 2019-05-31 13:35 | Outpatient (CLI) | payer MEDICARE | END 2019-05-31 13:36 | disposition home or self-care (01) | LOC: LAB.S 13:35 | PROVIDERS: ATTEND Registered Nurse | DX: D68.51 Activated protein C resistance (principal); Z79.01 Long term (current) use of anticoagulants | CPT/HCPCS: 85610 ==

== ENCOUNTER 2019-06-14 14:33 | Outpatient (CLI) | payer MEDICARE | END 2019-06-14 14:34 | disposition home or self-care (01) | LOC: LAB 14:33 | PROVIDERS: ATTEND Registered Nurse | DX: D68.51 Activated protein C resistance (principal); Z79.01 Long term (current) use of anticoagulants | CPT/HCPCS: 85610 ==

== ENCOUNTER 2019-08-22 14:11 | Outpatient (CLI) | payer MEDICARE ==
--- NOTE | 2019-08-22 16:53 | DEXA Report ---
Reason: OTH DISRD OF BONE AND STRUCTURE Procedure Date: 08/22/2019 Accession Number: [id number] / [id number] Procedure: DEX - Dexa Spine and/or Hip CPT Code: Final Report FULL RESULT: PROCEDURE: Dexa Spine and/or Hip INDICATIONS: OTH DISRD OF BONE AND STRUCTURE TECHNIQUE: Dual energy x-ray absorptiometry (DXA) was performed on a [employer]. Regions measured are the AP Spine, femoral neck, and if needed forearm. COMPARISON: None. FINDINGS: Lumbar Spine: Bone Mineral Density 1.025 g/cm/cm,T score -1.3, osteopenia Left femoral neck Bone Mineral Density 0.701 g/cm/cm,T score -2.4, osteopenia, borderline osteoporosis Left hip: Bone Mineral Density 0.839 g/cm/cm, T score -1.3, osteopenia (T score greater or equal to -1.0: NORMAL) (T score from -1.1 to -2.4: OSTEOPENIA) (T score less than or equal to -2.5 to: OSTEOPOROSIS) Impression: 1. Osteopenia with borderline osteoporosis of the left femoral neck. Osteopenia is noted within lumbar spine and left hip. Patients with diagnosis of osteoporosis or osteopenia should have regular bone mineral density assessment. For those eligible for Medicare, routine testing is allowed once every 2 years. Testing frequency can be increased for patients who have rapidly progressing disease or for those who are receiving medical therapy to restore bone mass. Reviewed by: Heidy Ruvalcaba MD on 08/22/2019 4:51 PM PDT Approved by: Heidy Ruvalcaba MD on 08/22/2019 4:51 PM PDT Station ID: [id number]
== END 2019-08-22 14:12 | disposition home or self-care (01) ==
LOC: DI 14:11
PROVIDERS: ATTEND Registered Nurse
DX: M85.88 Other specified disorders of bone density and structure, other site (principal)
CPT/HCPCS: 77080

== ENCOUNTER 2019-08-22 14:13 | Outpatient (CLI) | payer MEDICARE ==
--- NOTE | 2019-08-22 16:56 | CT Report ---
Reason: UNSPEC ABD PAIN Procedure Date: 08/22/2019 Accession Number: [id number] / [id number] Procedure: CT - Abdomen/Pelvis WO CPT Code: Final Report FULL RESULT: PROCEDURE: Abdomen/Pelvis WO INDICATIONS: UNSPEC ABD PAIN TECHNIQUE: Noncontrast 5 mm thick sections acquired from the diaphragms to the symphysis. 5 mm coronal and sagittal reformats were then performed. For radiation dose reduction, the following was used: automated exposure control, adjustment of mA and/or kV according to patient size. COMPARISON: None. FINDINGS: Image quality: Excellent. ABDOMEN: Lung bases: Lung bases are clear. Heart size is mildly enlarged with coronary artery calcifications. No pericardial effusion. Solid organs: Liver and spleen are normal in size. Gallbladder is surgically absent Pancreas is normal in contours. No adrenal nodules. Kidneys are normal in size, without hydronephrosis or nephrolithiasis. Peritoneum and bowel: Unenhanced bowel loops demonstrate normal wall thickness and caliber. No free fluid or air. Appendix is visualized and is within normal limits. Mild sigmoid diverticulosis is seen, no CT evidence of acute diverticulitis. Nodes and vessels: No retroperitoneal or mesenteric adenopathy by size criteria. Aorta and inferior vena cava are normal in caliber. Mild to moderate amount of atherosclerotic calcifications are seen. Miscellaneous: No ventral hernias. PELVIS: Genitourinary: Bladder wall thickness is normal. Miscellaneous: No inguinal hernias or adenopathy. Bones: No suspicious bony lesions. No vertebral body compression fractures. Degenerative disc disease throughout lower thoracic and lumbar spine is seen. IMPRESSION: 1. No acute inflammatory process within abdomen or pelvis. No bowel obstruction. Normal appendix. Sigmoid diverticulosis with no CT evidence of acute diverticulitis. No free fluid or free air. 2. Prior cholecystectomy. 3. Mild to moderate atherosclerotic disease. Reviewed by: Frankie Ross MD on 08/22/2019 4:54 PM PDT Approved by: Frankie Ross MD on 08/22/2019 4:54 PM PDT Station ID: [id number]
== END 2019-08-22 14:14 | disposition home or self-care (01) ==
LOC: DI 14:13
PROVIDERS: ATTEND Nurse Practitioner Family
DX: K57.30 Diverticulosis of large intestine without perforation or abscess without bleeding (principal); I70.90 Unspecified atherosclerosis; Z90.49 Acquired absence of other specified parts of digestive tract; M85.88 Other specified disorders of bone density and structure, other site
CPT/HCPCS: 74176; 77080

== ENCOUNTER 2019-11-01 11:44 | Outpatient (CLI) | payer MEDICARE ==
--- NOTE | 2019-11-01 17:09 | XRAY Report ---
PROCEDURE: Foot 3 View BILAT INDICATIONS: BILATERAL FOOT ANKLE PAIN TECHNIQUE: 3 views of the foot were acquired. COMPARISON: X-ray right foot 01/06/2011, bilateral ankle 11/01/2019 FINDINGS: Bones: No fractures or dislocations. No suspicious bony lesions. Scattered IP degenerative changes are present. No erosions. Calcaneal spurs are noted bilaterally, left greater than right. Soft tissues: No tibiotalar joint effusion. Achilles tendon appears normal. IMPRESSION: Scattered IP degenerative narrowing bilaterally. No erosions. Reviewed by: Heidy Ruvalcaba MD on 11/01/2019 5:08 PM PDT Approved by: Heidy Ruvalcaba MD on 11/01/2019 5:08 PM PDT Station ID: [id number]
--- NOTE | 2019-11-01 17:10 | XRAY Report ---
PROCEDURE: Ankle 3 View BILAT INDICATIONS: BILATERAL FOOT ANKLE PAIN TECHNIQUE: 3 views of the ankle were acquired. COMPARISON: X-ray right foot 01/06/2011, bilateral feet 11/01/2019 FINDINGS: Bones: No fractures or dislocations. Ankle mortise is normally aligned. No suspicious bony lesions . Bilateral calcaneal spurs are noted. Soft tissues: No tibiotalar joint effusion. Achilles tendon appears normal. IMPRESSION: Bilateral calcaneal spurs. Reviewed by: Heidy Ruvalcaba MD on 11/01/2019 5:08 PM PDT Approved by: Heidy Ruvalcaba MD on 11/01/2019 5:08 PM PDT Station ID: [id number]
== END 2019-11-01 11:45 | disposition home or self-care (01) ==
LOC: DI 11:44
PROVIDERS: ATTEND Podiatrist
DX: M19.072 Primary osteoarthritis, left ankle and foot (principal); M19.071 Primary osteoarthritis, right ankle and foot; M77.32 Calcaneal spur, left foot; M77.31 Calcaneal spur, right foot

== ENCOUNTER 2019-11-29 11:42 | Outpatient (CLI) | payer MEDICARE | END 2019-11-29 11:43 | disposition home or self-care (01) | LOC: LAB.S 11:42 | PROVIDERS: ATTEND Registered Nurse | DX: D68.51 Activated protein C resistance (principal); Z79.01 Long term (current) use of anticoagulants | CPT/HCPCS: 85610 ==

== ENCOUNTER 2020-01-08 10:17 | Outpatient (CLI) | payer MEDICARE | END 2020-01-08 10:18 | disposition home or self-care (01) | LOC: LAB.S 10:17 | PROVIDERS: ATTEND Registered Nurse | DX: D68.51 Activated protein C resistance (principal); Z79.01 Long term (current) use of anticoagulants | CPT/HCPCS: 85610 ==

== ENCOUNTER 2020-01-11 15:07 | Outpatient (CLI) | payer MEDICARE | END 2020-01-11 15:08 | disposition home or self-care (01) | LOC: LAB.S 15:07 | PROVIDERS: ATTEND Registered Nurse | DX: D68.51 Activated protein C resistance (principal); Z79.01 Long term (current) use of anticoagulants | CPT/HCPCS: 85610 ==

== ENCOUNTER 2020-02-05 13:25 | Outpatient (CLI) | payer MEDICARE ==
[2020-02-05 20:10] LABS: ALBUMIN 4.2 g/dL (3.2-5.5); ALBUMIN/GLOBULIN RATIO 1.4 (1.0-2.2); BILIRUBIN,TOTAL 0.7 mg/dL (0.2-1.0); CALCIUM 9.4 mg/dL (8.5-10.3); CREATININE 0.7 mg/dL (0.4-1.0); TOTAL PROTEIN 7.2 g/dL (6.7-8.2)
== END 2020-02-05 13:26 | disposition home or self-care (01) ==
LOC: LAB.S 13:25
PROVIDERS: ATTEND Internal Medicine Gastroenterology
DX: R10.11 Right upper quadrant pain (principal)
CPT/HCPCS: 36415; 80053; 82150; 83690

== ENCOUNTER 2020-07-04 15:12 | Outpatient (CLI) | payer MEDICARE | END 2020-07-04 15:13 | disposition home or self-care (01) | LOC: LAB 15:12 | PROVIDERS: ATTEND Registered Nurse | DX: D68.51 Activated protein C resistance (principal); Z79.01 Long term (current) use of anticoagulants | CPT/HCPCS: 85610 ==

== ENCOUNTER 2020-11-27 12:25 | Emergency (ER) | payer MEDICARE ==
[2020-11-27 14:40] LABS: BASOPHILS % (AUTO) 0.5 %; EOSINOPHILS # (AUTO) 0.3 10^3/uL (0.0-0.7); EOSINOPHILS % (AUTO) 4.1 %; HCT - HEMATOCRIT 42.5 % (37.0-47.0); HGB - HEMOGLOBIN 13.4 g/dL (12.0-16.0); LYMPHOCYTES # (AUTO) 2.4 10^3/uL (1.5-3.5); LYMPHOCYTES % (AUTO) 31.6 %; MEAN CORPUSCULAR HEMOGLOBIN 31.7 pg (27.0-31.0); MEAN CORPUSCULAR HGB CONC 31.5 g/dL (32.0-36.0); MEAN CORPUSCULAR VOLUME 100.5 fL (81.0-99.0); MONOCYTES # (AUTO) 0.6 10^3/uL (0.0-1.0); MONOCYTES % (AUTO) 7.2 %; NEUTROPHILS # (AUTO) 4.3 10^3/uL (1.5-6.6); NEUTROPHILS % (AUTO) 56.2 %; PLT - PLATELET COUNT 242 10^3/uL (130-450); RED BLOOD COUNT 4.23 10^6/uL (4.20-5.40); RED CELL DISTRIBUTION WIDTH 13.6 % (12.0-15.0); WHITE BLOOD COUNT 7.6 x10^3/uL (4.8-10.8)
[2020-11-27 14:50] LABS: ALBUMIN 4.4 g/dL (3.2-5.5); ALBUMIN/GLOBULIN RATIO 1.5 (1.0-2.2); BILIRUBIN,TOTAL 0.8 mg/dL (0.2-1.0); CALCIUM 10.4 mg/dL (8.5-10.3); CREATININE 0.7 mg/dL (0.4-1.0); POTASSIUM 3.7 mmol/L (3.5-5.0); TOTAL PROTEIN 7.4 g/dL (6.7-8.2)
[2020-11-27] MEDS ORDERED: IOPAMIDOL-300 100 ML VIAL ONE (15:38)
--- NOTE | 2020-11-27 16:18 | CT Report ---
PROCEDURE: ANGIO NECK W INDICATIONS: L sided weakness CONTRAST: IV CONTRAST: Isovue 300 ml: 80 PO CONTRAST: *NO PO CONTRAST TECHNIQUE: After the administration of intravenous contrast, 1.5 mm axial sections acquired from the aortic arch to the [place] of [place]. Coronal 3-D maximum intensity projection (MIP) and/or volume rendering ref ormats were then performed. For radiation dose reduction, the following was used: automated exposur e control, adjustment of mA and/or kV according to patient size. COMPARISON: Correlation is made with prior cervical spine CT, 10/25/2018. Correlation is also made wi th the accompanying head CT angiogram, 11/27/2020. FINDINGS: Image quality: Excellent. Carotid system: The great vessels demonstrate a conventional anatomy as they arise from the aortic a rch. The origins of the common carotid arteries appear patent. The common carotid arteries demonstr ate normal calibers and courses. The bifurcation regions demonstrate dense atherosclerotic calcifica tion. There is 60-70% narrowing seen involving the left proximal internal carotid artery. There is ap proximately 50% narrowing seen involving the right proximal internal carotid artery. The more distal internal carotid arteries demonstrate normal course and caliber. Posterior circulation: The origins of the vertebral arteries appear patent. The more superior porti ons of the vertebral arteries demonstrate normal course and caliber. They join to form a normal appe aring basilar artery. Soft tissues: Visualized neck soft tissues demonstrate no suspicious abnormalities. The thyroid is normal in size and there are no incidental findings. Mild left-sided changes can be seen within the v isualized lung apices. Bones: No suspicious bony lesions. Visualized cervical spine appears normally aligned. IMPRESSION: Focal atherosclerotic calcification and irregularity can be seen involving the carotid bifurcation re gions, with 60-70% narrowing involving the left proximal internal carotid artery and approximately 50 % narrowing involving the right proximal internal carotid artery. The estimate of stenosis included in the report of the imaging study was calculated using the NASCET method Reviewed by: Juan Miguel Hood MD on 11/27/2020 3:17 PM AKDT Approved by: Juan Miguel Hood MD on 11/27/2020 3:17 PM AKDT Station ID: [id number]
--- NOTE | 2020-11-27 16:20 | CT Report ---
PROCEDURE: ANGIO HEAD W/WO INDICATIONS: L sided weakness CONTRAST: IV CONTRAST: Isovue 300 ml: 80 PO CONTRAST: *NO PO CONTRAST TECHNIQUE: Precontrast 4.5 mm thick angled axial sections acquired from the foramen magnum to the vertex. Afte r the administration of intravenous contrast, 1 mm thick sections acquired through the [place] of [place] is. Postcontrast 4.5 mm thick sections then re-acquired from the foramen magnum to the vertex. 3-di mensional ncoqnhb-aakiswofh-wprcvszrxz (MIP) and/or volume rendering reformats were acquired of the c entral intracranial vasculature. For radiation dose reduction, the following was used: automated ex posure control, adjustment of mA and/or kV according to patient size. COMPARISON: Correlation is made with prior head CT, 10/25/2018. [facility]. FINDINGS: Image quality: There is streak artifact seen through the skull base. Anterior circulation: Intracranial internal carotid arteries demonstrate atelectatic calcification a nd irregularity, with approximately 30% narrowing seen on each side.. The flow within the paired ant erior cerebral arteries is normal and symmetric. The flow within the middle cerebral arteries is nor mal and symmetric. The anterior communicating artery is seen. No aneurysms are seen. Posterior circulation: Visualized portions of the vertebral arteries demonstrate normal caliber, and join to form a normal appearing basilar artery. Incidental note is made of a prominent right poste rior communicating artery, with a diminutive right P1 segment. 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 Flow within the posterior cerebral arteries is normal and symmetric. No aneurysms are seen. CSF spaces: Ventricles are normal in size and shape. Basal cisterns are patent. No extra-axial flu id collections. Brain: No midline shift. No intracranial bleeds or masses. Martinez-white matter interface appears int act. Skull and face: Calvarium and facial bones appear intact, without suspicious lesions. Sinuses: Visualized sinuses and mastoids are clear. IMPRESSION: No intracranial hemorrhage is seen. No significant intracranial abnormality is seen. No significant intracranial arterial abnormalities are seen. Reviewed by: Juan Miguel Hood MD on 11/27/2020 3:19 PM AKDT Approved by: Juan Miguel Hood MD on 11/27/2020 3:19 PM ILDEFONSO Station ID: [id number]
--- NOTE | 2020-11-27 16:43 | ED Physician Documentation ---
PD HPI FOCAL NEURO - Stated complaint Stated Complaint: L SIDE NUMBNESS - Chief complaint Chief Complaint: Neuro - History obtained from History obtained from: Patient - History of Present Illness Timing - onset: How many days ago Severity of deficit: Mild Weakness: Leg, Foot, Left Associated symptoms: No: Headache, Nausea / vomiting, Seizure, Syncope, Fall, Head injury, Chest pain, Neck pain, Back pain, Fever Contributing factors: positive: Anticoagulated Baseline status: positive: A&OX3, ambulatory, indep Recently seen: Not recently seen - Additional information Additional information: Patient is a 75-year-old female who presents to the emergency department stating that for the past 2 to 3 days she has noticed when she has been walking upstairs that her left foot seems to be dragging and her left toe seems to be catching on a step. She states that she awoke this morning and symptoms seem to worse. Decided to come to the ER for evaluation. Had mild tingling to the left fingers earlier today as well. This is since resolved. She has also had mild tingling to the left upper lip, also now resolved. She has a history of protein S deficiency and is on warfarin. 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: Hysterectomy HEENT: Tonsil/Adenoidectomy - Present Medications Home Medications: Ambulatory Orders Medication Instructions Recorded Confirmed Diclofenac Sodium 100 gm TP 02/29/16 02/29/16 Lisinopril [Zestril] 40 mg PO 02/29/16 Omeprazole [PriLOSEC] 20 mg PO DAILY 02/29/16 02/29/16 Warfarin Sodium [Coumadin] 10 mg PO 02/29/16 Meclizine [Antivert] 12.5 - 25 mg PO Q6H PRN #30 tablet 10/25/18 Ondansetron Odt [Zofran] 4 mg TL Q6H PRN #10 tablet 10/25/18 - Allergies Allergies/Adverse Reactions: Allergies Allergy/AdvReac Type Severity Reaction Status Date / Time Iodine and Iodide Containing Allergy Unknown Verified 11/27/20 12:44 Produc - Social History Does the pt smoke?: No Smoking Status: Never smoker Does the pt drink ETOH?: Yes Does the pt have substance abuse?: No - Immunizations Immunizations are current?: Yes Immunizations: TDAP >10years/unknown - POLST Patient has POLST: No PD ED PE NORMAL - Vitals Vital signs reviewed: Yes - General General: Alert and oriented X 3, No acute distress, Well developed/nourished - HEENT HEENT: Atraumatic, PERRL, EOMI, Ears normal, Moist mucous membranes - Neck Neck: Supple, no meningeal sign - Cardiac Cardiac: RRR, No murmur, Strong equal pulses - Respiratory Respiratory: No respiratory distress, Clear bilaterally - Abdomen Abdomen: Soft, Non tender, Non distended - Back Back: No spinal TTP - Derm Derm: Warm and dry - Extremities Extremities: No edema, No calf tenderness / cord - Neuro Neuro: Alert and oriented X 3, group reservations coordinator 2-12 intact, No motor deficit (mild weakness L LE), No sensory deficit, Normal speech Eye Opening: Spontaneous Motor: Obeys Commands Verbal: Oriented GCS Score: 15 - Psych Psych: Normal mood, Normal affect NIHSS - Time Time: 16:20 - Level of Consciousness Level of consciousness: (0) Alert, Keenly responsive LOC Questions: (0) Answers both Q's correct LOC Commands: (0) Performs both correctly - Gaze Best Gaze: (0) Normal - Visual Visual: (0) No loss - Facial Palsy Facial Palsy: (0) Normal, symmetrical movement - Motor Arms (both separate) Motor Arm (right): (0) No drift Motor Arm (left): (0) No drift - Motor Legs (both separate) Motor Leg (right): (0) No drift Motor Leg (left): (0) No drift - Limb Ataxia Limb Ataxia: (0) Absent - Sensory Sensory: (0) Normal - Best Language Best Language: (0) No aphasia - Dysarthria Dysarthria: (0) Normal - Extinction and Inattention (formally neg Extinction and inattention: (0) No abnormality - Total Score/Results Total Score/Result: 0 Results - Vitals Vitals: Vital Signs - 24 hr 11/27/20 11/27/20 11/27/20 12:39 13:19 17:04 Temperature 36.6 C Heart Rate 66 66 59 L Respiratory 16 18 15 Rate Blood Pressure 178/74 H 157/71 H 171/83 H O2 Saturation 99 98 98 Oxygen O2 Source Room air - EKG (time done) 1351 Rate: Rate (enter#) (66) Rhythm: NSR Ama: Normal Intervals: Normal [place] QRS: Normal Ischemia: Other (borderline repolarization abnormality.) - Labs Labs: Laboratory Tests 11/27/20 11/27/20 11/27/20 14:33 14:33 16:36 WBC 7.6 RBC 4.23 Hgb 13.4 Hct 42.5 MCV 100.5 H MCH 31.7 H MCHC 31.5 L RDW 13.6 Plt Count 242 MPV 9.0 Neut # (Auto) 4.3 Lymph # (Auto) 2.4 Weakley # (Auto) 0.6 Eos # (Auto) 0.3 Baso # (Auto) 0.0 Absolute Nucleated RBC 0.00 Nucleated RBC % 0.0 PT 27.1 H INR 2.4 H Sodium 142 Potassium 3.7 Chloride 105 Carbon Dioxide 27 Anion Gap 10.0 BUN 21 H Creatinine 0.7 Estimated GFR (MDRD) 82 L Glucose 161 H Calcium 10.4 H Total Bilirubin 0.8 AST 32 ALT 34 Alkaline Phosphatase 68 Total Protein 7.4 Albumin 4.4 Globulin 3.0 Albumin/Globulin Ratio 1.5 Lipase 39 - Rads (name of study) CTA head Radiology: Final report received, EMP read contemporaneously, See rad report CTA neck Radiology: Final report received, EMP read contemporaneously, See rad report PD MEDICAL DECISION MAKING - ED course Complexity details: reviewed results, re-evaluated patient, considered differential, d/w patient, d/w business travel consultant (Lovely Trinh) ED course: Patient with strokelike symptoms that are about 2 to 3 days old. She is adequately anticoagulated on warfarin. MRI is not available today. There are no beds available in the hospital today. Patient does not want to attempt to be transferred. Her symptoms are mild at this time. I discussed the case with her primary care provider who will order an for tomorrow and follow-up with the patient likely or Wednesday. Patient is comfortable with this plan and will return if she worsens. Patient is ambulating without difficulty and not r equiring assistive device although she does have a cane and walker at home if needed. Patient counseled regarding signs and symptoms for which I believe and urgent re-evaluation would be necessary. Patient with good understanding of and agreement to plan and is comfortable going home at this time This document was made in part using voice recognition software. While efforts are made to proofread this document, sound alike and grammatical errors may occur. IMPRESSION: Focal atherosclerotic calcification and irregularity can be seen involving the carotid bifurcation regions, with 60-70% narrowing involving the left proximal internal carotid artery and approximately 50% narrowing involving the right proximal internal carotid artery. IMPRESSION: No intracranial hemorrhage is seen. No significant intracranial abnormality is seen. No significant intracranial arterial abnormalities are seen. Departure - Departure Disposition: Home, Self Care Clinical Impression: Stroke-like symptoms Condition: Good Instructions: ED Stroke Completed Follow-Up: Lovely Trinh ARNP [Primary Care Provider] - Within 3 Days Comments: Lovely's office will contact you about the MRI. This will likely be performed tomorrow. Please return if you worsen. Follow-up with Lovely Trinh on Wednesday. You will need to be started on a statin for home as well Discharge Date/Time: 11/27/20 17:15
[2020-11-27 17:02] LABS: INR 2.4 (0.8-1.2); PT - PROTHROMBIN TIME 27.1 secs (9.9-12.6)
[2020-11-27 17:04] VITALS: BP 171/83
[2020-11-27] MEDS ORDERED: IOPAMIDOL-300 100 ML VIAL IVP ONE (20:58)
== END 2020-11-27 17:15 | disposition home or self-care (01) ==
LOC: ED 12:25
DX: R20.2 Paresthesia of skin (principal); R29.898 Other symptoms and signs involving the musculoskeletal system; Z79.01 Long term (current) use of anticoagulants
CPT/HCPCS: 36415; 70496; 70498; 80053; 83690; 85025; 85610; 93005; 99284; 99285; Q9967

== ENCOUNTER 2021-07-03 19:01 | Emergency (ER) | payer MEDICARE ==
--- NOTE | 2021-07-03 19:21 | ED Physician Documentation ---
PD HPI HEAD INJURY - Stated complaint Stated Complaint: GLF/HEAD INJ - Chief complaint Chief Complaint: Trauma Hd/Nk - History obtained from History obtained from: Patient - History of Present Illness Mechanism of head injury: Fell Where head injury occurred: A house / apartment (outside of a house) Timing - onset: Enter time (16:30), Today Pain level now: 3 Location of injury: Right Quality of pain: Pain Associated symptoms: No: LOC, AMS, Amnesia, Nausea / vomiting, Neck pain, Paresthesias Contributing factors: Anticoagulated Recently seen: Not recently seen - Additional information Additional information: patient takes warfarin for protein-c deficiency. Today at approximately 4:30 PM , she tripped (thinks she might have caught heel on concrete ledge/edge), falling on to her right shoulder, struck right side of head on the ground. Denies LOC. Denies PRYOR per se, although she says she is "a little tender" on right side of head. Denies neck pain, denies any other injury. Patient says her most recent check of INR was 3 days ago, and result was 2.7 Review of Systems Eyes: denies: Loss of vision, Decreased vision Cardiac: denies: Chest pain / pressure GI: denies: Abdominal Pain Musculoskeletal: reports: Joint pain (right shoulder). denies: Neck pain, Back pain Neurologic: reports: Head injury. 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 HEENT: Tonsil/Adenoidectomy - Present Medications Home Medications: Ambulatory Orders Medication Instructions Recorded Confirmed Diclofenac Sodium [Diclofenac 100 gm TP DAILY 02/29/16 07/03/21 Sodium 3%] Lisinopril [Zestril] 40 mg PO DAILY 02/29/16 07/03/21 Omeprazole [PriLOSEC] 20 mg PO DAILY 02/29/16 07/03/21 Warfarin Sodium [Coumadin] 10 mg PO 5XD 02/29/16 07/03/21 Atorvastatin Calcium 40 mg PO DAILY 07/03/21 07/03/21 DULoxetine [Cymbalta] 20 mg PO DAILY 07/03/21 07/03/21 Fluoxetine HCl [Prozac] 20 mg PO DAILY 07/03/21 07/03/21 Warfarin [Coumadin] 7.5 mg PO 07/03/21 - Allergies Allergies/Adverse Reactions: Allergies Allergy/AdvReac Type Severity Reaction Status Date / Time Iodine and Iodide Containing Allergy Unknown Verified 07/03/21 19:18 Produc - Social History Does the pt smoke?: No Smoking Status: Never smoker Does the pt drink ETOH?: Yes Does the pt have substance abuse?: No - Immunizations Immunizations are current?: Yes Immunizations: TDAP >10years/unknown - POLST Patient has POLST: No PD ED PE NORMAL - Vitals Vital signs reviewed: Yes - General General: Alert and oriented X 3, No acute distress, Well developed/nourished - HEENT HEENT: PERRL, EOMI, Other (no bony tenderness of skull. negative battles, negative racoon eyes) - Neck Neck: No bony TTP - Cardiac Cardiac: RRR - Respiratory Respiratory: No respiratory distress, Clear bilaterally - Abdomen Abdomen: Soft, Non tender - Extremities Extremities: No deformity, No tenderness to palpate, Normal ROM s pain, Other (right shoulder: nontender, FROM, no deformity) - Neuro Neuro: Alert and oriented X 3 Eye Opening: Spontaneous Motor: Obeys Commands Verbal: Oriented GCS Score: 15 Results - Vitals Vitals: Vital Signs - 24 hr 07/03/21 07/03/21 19:06 20:10 Temperature 36.5 C 36.7 C Heart Rate 73 64 Respiratory 18 18 Rate Blood Pressure 170/81 H 148/92 H O2 Saturation 99 100 Oxygen O2 Source Room air - Rads (name of study) CT head Radiology: Prelim report reviewed, See rad report PD MEDICAL DECISION MAKING - ED course Complexity details: reviewed results, re-evaluated patient, considered differential, d/w patient ED course: tripped and fell this afternoon, struck right side of head and right shoulder on ground. No LOC but she takes warfarin for protein-c deficiency. Considering her age and the warfarin in setting of head injury, CT scan performed. She has no tenderness of right shoulder or surrounding structures and ROM intact right shoulder, and thus no imaging except CTH performed. CTH has no acute/concerning findings; there are microvascular changes c/w chronic microvascular ischemic changes. Results reviewed with patient and her daughter (in ED at bedside). Patient remains in NAD at discharge. Return precautions discussed. Departure - Departure Disposition: 01 Home, Self Care Clinical Impression: Head injury Qualifiers: Encounter type: initial encounter Qualified Code(s): S09.90XA - Unspecified injury of head, initial encounter Condition: Good Instructions: ED Head Injury Closed Sleep Mon Follow-Up: Lovely Trinh, GROCERY SPECIALIST [Primary Care Provider] - (3-5 days if any symptoms persist) Comments: Your CT scan does not show any acute findings; there is no evidence of injury nor other concerning findings. There are findings that are consistent with normal aging process. The reading is as below: COMPARISON: CT head 11/27/2020. FINDINGS: Image quality: Excellent. CSF spaces: Basal cisterns are patent. No extra-axial fluid collections. Ventricles are symmetric in size and shape. Brain: No midline shift. No intracranial masses or hemorrhage. Scattered hypodensities in subcortical and periventricular white matter most commonly seen in setting of chronic microvascular ischemic changes. There is mild cerebral and cerebellar parenchymal volume loss. Skull and face: Calvarium and visualized facial bones are intact, without suspicious lesions. Sinuses: Visualized sinuses and mastoids are clear. IMPRESSION: No acute intracranial abnormality. Reviewed by: Moiz Jacome MD on 07/03/2021 7:58 PM PDT Approved by: Moiz Jacome MD on 07/03/2021 7:58 PM PDT Discharge Date/Time: 07/03/21 20:18
--- NOTE | 2021-07-03 19:59 | CT Report ---
PROCEDURE: HEAD WO INDICATIONS: fall, head injury, on warfarin TECHNIQUE: Noncontrast 4.5 mm thick angled axial sections acquired from the foramen magnum to the vertex. For r adiation dose reduction, the following was used: automated exposure control, adjustment of mA and/or kV according to patient size. COMPARISON: CT head 11/27/2020. FINDINGS: Image quality: Excellent. CSF spaces: Basal cisterns are patent. No extra-axial fluid collections. Ventricles are symmetric in size and shape. Brain: No midline shift. No intracranial masses or hemorrhage. Scattered hypodensities in subcortic al and periventricular white matter most commonly seen in setting of chronic microvascular ischemic c hanges. There is mild cerebral and cerebellar parenchymal volume loss. Skull and face: Calvarium and visualized facial bones are intact, without suspicious lesions. Sinuses: Visualized sinuses and mastoids are clear. IMPRESSION: No acute intracranial abnormality. Reviewed by: Moiz Jacome MD on 07/03/2021 7:58 PM PDT Approved by: Moiz Jacome MD on 07/03/2021 7:58 PM PDT Station ID: [id number]
[2021-07-03 20:11] VITALS: BP 148/92
== END 2021-07-03 20:18 | disposition home or self-care (01) ==
LOC: ED 19:01
DX: S09.90XA Unspecified injury of head, initial encounter (principal); W01.0XXA Fall on same level from slipping, tripping and stumbling without subsequent striking against object, initial encounter
CPT/HCPCS: 36415; 99282; 99284

== ENCOUNTER 2021-10-08 11:06 | Emergency (ER) | payer MEDICARE ==
[2021-10-08 11:12] VITALS: BP 144/118
--- NOTE | 2021-10-08 13:09 | ED Physician Documentation ---
History of Present Illness - Stated complaint Stated Complaint: RT KNEE/LEG PX - Chief complaint Chief Complaint: Ext Problem - Additonal information Additional information: 76-year-old lady who has a history of protein S deficiency and is on lifelong Coumadin secondary to that presents to the emergency department requesting an ultrasound DVT exam on her right leg. She checked her INR yesterday and was subtherapeutic at 1.4. Over the last week she has been having increased right knee pain. She initially attributed this to her known history of severe arthritis as well as a Harrison's cyst but when she had the subtherapeutic INR level was concerned that the knee pain may actually be due to a DVT. She denies any chest pain or shortness of air. There is no leg swelling. Review of Systems Constitutional: denies: Fever, Chills Cardiac: reports: Reviewed and negative Respiratory: reports: Reviewed and negative Musculoskeletal: reports: Joint pain. 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 HEENT: Tonsil/Adenoidectomy - Present Medications Home Medications: Ambulatory Orders Medication Instructions Recorded Confirmed Diclofenac Sodium [Diclofenac 100 gm TP DAILY 02/29/16 10/08/21 Sodium 3%] Lisinopril [Zestril] 40 mg PO DAILY 02/29/16 10/08/21 Omeprazole [PriLOSEC] 20 mg PO DAILY 02/29/16 10/08/21 Warfarin Sodium [Coumadin] 10 mg PO 5XD 02/29/16 10/08/21 Atorvastatin Calcium 40 mg PO DAILY 07/03/21 10/08/21 DULoxetine [Cymbalta] 20 mg PO DAILY 07/03/21 10/08/21 Warfarin [Coumadin] 7.5 mg PO 07/03/21 - Allergies Allergies/Adverse Reactions: Allergies Allergy/AdvReac Type Severity Reaction Status Date / Time Iodine and Iodide Containing Allergy Unknown Verified 10/08/21 11:12 Produc - Social History Does the pt smoke?: No Smoking Status: Never smoker Does the pt drink ETOH?: Yes Does the pt have substance abuse?: No - Immunizations Immunizations are current?: Yes Immunizations: TDAP >10years/unknown - POLST Patient has POLST: No PD ED PE EXPANDED - General General: Alert, No acute distress - Extremities Extremities: Right knee (Patient has a normal gait. Harrison's cyst is appreciated posteriorly. No laxity or erythema. No micromotion tenderness.) Results - Vitals Vitals: Vital Signs - 24 hr 10/08/21 11:07 Temperature 36.2 C L Heart Rate 62 Respiratory 18 Rate Blood Pressure 144/118 H O2 Saturation 98 Oxygen O2 Source Room air - Rads (name of study) Right leg ultrasound Radiology: Final report received (Negative for deep vein thrombosis) PD MEDICAL DECISION MAKING - ED course Complexity details: considered differential, d/w patient ED course: 76-year-old female presents to the emergency department for evaluation of 1 week of right knee pain in the setting of a history of arthritis and known Harrison's cyst. She also has a history of protein S deficiency for which she is on Coumadin. Her INR level was checked yesterday and was found to be subtherapeutic. Thus this prompted concern for her that she could have a DVT. Reassuringly the ultrasound today is negative. Given the known history of arthritis and a Harrison's cyst I deferred further imaging. There is no swelling erythema or fever to suggest infection. Discussed routine care and follow-up with her primary care doctor as well as follow-up for subtherapeutic INR. Emergent return precautions were discussed for concerns of worsening symptoms Departure - Departure Disposition: 01 Home, Self Care Clinical Impression: Anticoagulated on Coumadin Right knee pain Qualifiers: Chronicity: chronic Qualified Code(s): M25.561 - Pain in right knee; G89.29 - Other chronic pain Condition: Stable Comments: Bettie hazel are seen today in the emergency department because you have had some worsening pain in your right knee. You were concerned that you could have a deep vein thrombosis because your INR yesterday was subtherapeutic. Today the ultrasound is entirely negative for any concerns of deep vein thrombosis. I suspect that the cause of your pain may be due to an enlarging Harrison's cyst or the osteoarthritis. If you find that you have improved pain and comfort by wearing a knee sleeve that is appropriate. I encourage you to have very close follow-up with your primary care provider. We would not recommend drainage of the Harrison's cyst today in the emergency department and less the symptoms were more acute or severe.
--- NOTE | 2021-10-08 13:23 | Ultrasound Report ---
PROCEDURE: Duplex Ext Veins Right INDICATIONS: RLE pain TECHNIQUE: Real-time imaging, as well as color and pulse Doppler interrogation, were performed of the lower extr emity deep veins from the inguinal ligament to the popliteal fossa. COMPARISON: 01/21/2015. FINDINGS: The deep veins are normally compressible, and free of intraluminal thrombus. Color and pu lse Doppler demonstrate normal phasic intraluminal flow. There is normal augmentation response to di stal compression maneuver. A simple appearing Harrison's cyst is noted measuring 1.3 x 3.8 x 1.0 cm. IMPRESSION: Negative for deep venous thrombosis of the right lower extremity. Simple Harrison's cyst noted in the posterior right knee. Reviewed by: Amish Henson MD on 10/08/2021 1:21 PM PDT Approved by: Amish Henson MD on 10/08/2021 1:21 PM PDT Station ID: [id number]
== END 2021-10-08 13:56 | disposition home or self-care (01) ==
LOC: ED 11:06
DX: M25.561 Pain in right knee (principal); D68.59 Other primary thrombophilia; G89.29 Other chronic pain; Z79.01 Long term (current) use of anticoagulants; I10 Essential (primary) hypertension
CPT/HCPCS: 99283

== ENCOUNTER 2022-06-18 11:43 | Outpatient (CLI) | payer MEDICARE ==
--- NOTE | 2022-06-19 07:07 | XRAY Report ---
PROCEDURE: Hand 3 View BILAT INDICATIONS: PAIN OF BILATERAL HANDS TECHNIQUE: 3 views of the hand(s) acquired. COMPARISON: None. FINDINGS: Bones: No fractures or dislocations. No suspicious bony lesions. Soft tissues: No suspicious soft tissue calcifications or masses. IMPRESSION: No acute bony abnormality. No significant degenerative change. Reviewed by: Ryan Stringer on 06/18/2022 1:06 PM PDT Approved by: Ryan Stringer on 06/18/2022 1:06 PM PDT Station ID: [id number]
[2022-06-20 14:07] LABS: ANTINUCLEAR ANTIBODIES IFA Negative (.)
== END 2022-06-18 11:44 | disposition home or self-care (01) ==
LOC: DI.S 11:43
PROVIDERS: ATTEND Nurse Practitioner Family
DX: M79.641 Pain in right hand (principal); M79.642 Pain in left hand; M79.10 Myalgia, unspecified site
CPT/HCPCS: 36415; 85651; 86038; 86140

== ENCOUNTER 2023-08-07 11:49 | Outpatient (CLI) | payer MEDICARE ==
--- NOTE | 2023-08-09 10:06 | Ultrasound Report ---
PROCEDURE: Duplex Ext Veins Right INDICATIONS: R CALF PAIN TECHNIQUE: Real-time imaging, as well as color and pulse Doppler interrogation, were performed of the lower extr emity deep veins from the inguinal ligament to the popliteal fossa. Attempted visualization of the ca lf veins was performed. COMPARISON: None. FINDINGS: The deep veins are normally compressible, and free of intraluminal thrombus. Color and pu lse Doppler demonstrate normal phasic intraluminal flow. There is normal augmentation response to di stal compression maneuver. IMPRESSION: No deep venous thrombosis of the visualized lower extremity. Reviewed by: Heidy Ruvalcaba MD on 08/09/2023 10:05 AM PDT Approved by: Heidy Ruvalcaba MD on 08/09/2023 10:05 AM PDT Station ID: [id number]
== END 2023-08-07 11:50 | disposition home or self-care (01) ==
LOC: DI 11:49
PROVIDERS: ATTEND Registered Nurse
DX: M79.661 Pain in right lower leg (principal)

== ENCOUNTER 2023-09-17 11:29 | Emergency (ER) | payer MEDICARE ==
[2023-09-17 12:10] VITALS: O2SAT 99
[2023-09-17 12:11] LABS: HCT - HEMATOCRIT 41.3 % (37.0-47.0); HGB - HEMOGLOBIN 12.8 g/dL (12.0-16.0); MEAN CORPUSCULAR HEMOGLOBIN 29.6 pg (27.0-31.0); MEAN CORPUSCULAR VOLUME 95.4 fL (81.0-99.0); MEAN PLATELET VOLUME 9.5 fL (7.9-10.8); PLT - PLATELET COUNT 280 10^3/uL (130-450); RED BLOOD COUNT 4.33 10^6/uL (4.20-5.40); RED CELL DISTRIBUTION WIDTH 13.9 % (12.0-15.0); WHITE BLOOD COUNT 7.7 x10^3/uL (4.8-10.8)
[2023-09-17 12:12] LABS: BASOPHILS # (AUTO) 0.1 10^3/uL (0.0-0.1); BASOPHILS % (AUTO) 0.6 %; EOSINOPHILS # (AUTO) 0.3 10^3/uL (0.0-0.7); EOSINOPHILS % (AUTO) 4.3 %; LYMPHOCYTES # (AUTO) 2.8 10^3/uL (1.5-3.5); LYMPHOCYTES % (AUTO) 35.8 %; MONOCYTES % (AUTO) 12.8 %; NEUTROPHILS # (AUTO) 3.6 10^3/uL (1.5-6.6); NEUTROPHILS % (AUTO) 46.2 %
[2023-09-17 12:22] LABS: ALBUMIN 4.7 g/dL (3.2-5.5); ALBUMIN/GLOBULIN RATIO 1.7 (1.0-2.2); BILIRUBIN,TOTAL 0.8 mg/dL (0.2-1.0); CALCIUM 10.6 mg/dL (8.5-10.3); CREATININE 0.7 mg/dL (0.6-1.3); POTASSIUM 4.3 mmol/L (3.5-4.5); TOTAL PROTEIN 7.4 g/dL (6.4-8.9)
[2023-09-17 12:23] LABS: PARTIAL THROMBOPLASTIN TIME 42.9 secs (24.9-33.3)
--- NOTE | 2023-09-17 12:26 | XRAY Report ---
PROCEDURE: Shoulder 2+V LT INDICATIONS: Fall TECHNIQUE: 3 views of the shoulder were acquired. COMPARISON: None. FINDINGS: Bones: No fractures or dislocations. No suspicious bony lesions. Visualized ribs appear intact. Soft tissues: No suspicious soft tissue calcifications. The visualized lungs are within normal limi ts. IMPRESSION: No acute bony abnormality. Reviewed by: Michael Ag MD on 09/17/2023 12:25 PM PDT Approved by: Michael Ag MD on 09/17/2023 12:25 PM PDT Station ID: [id number]
[2023-09-17 12:27] LABS: INR 2.3 (0.8-1.2); PT - PROTHROMBIN TIME 23.9 secs (9.9-12.6)
--- NOTE | 2023-09-17 12:27 | XRAY Report ---
PROCEDURE: Wrist 3+V LT INDICATIONS: Fall TECHNIQUE: 3 views of the wrist were acquired. COMPARISON: None. FINDINGS: Bones: No fractures or dislocations. Moderate degenerative change at the base of the thumb. No suspi cious bony lesions. Soft tissues: No suspicious soft tissue calcifications or masses. Small vessel arterial calcificatio ns typically indicate long-standing diabetes or hyperparathyroidism IMPRESSION: No acute bony abnormality. Moderate degenerative change at the base of the thumb. Reviewed by: Michael Ag MD on 09/17/2023 12:26 PM PDT Approved by: Michael Ag MD on 09/17/2023 12:26 PM PDT Station ID: [id number]
--- NOTE | 2023-09-17 12:32 | CT Report ---
PROCEDURE: Head WO INDICATIONS: Head trauma, coagulopathy TECHNIQUE: Noncontrast 4.5 mm thick angled axial sections acquired from the foramen magnum to the vertex. For r adiation dose reduction, the following was used: automated exposure control, adjustment of mA and/or kV according to patient size. COMPARISON: 07/03/2021. FINDINGS: Image quality: Excellent. CSF spaces: Basal cisterns are patent. No extra-axial fluid collections. Ventricles are normal in size and shape. Intracranial carotid calcifications. Age-related volume loss and small vessel ischemic change. Brain: No midline shift. No intracranial masses or hemorrhage. Martinez-white matter interface is norm al. Skull and face: Calvarium and visualized facial bones are intact, without suspicious lesions. Sinuses: Subtotal opacification of the left maxillary sinus. The other paranasal sinuses and mastoids are clear as visualized. IMPRESSION: Left maxillary sinusitis. No acute intracranial pathology. Reviewed by: Michael Ag MD on 09/17/2023 12:31 PM PDT Approved by: Michael Ag MD on 09/17/2023 12:31 PM PDT Station ID: [id number]
--- NOTE | 2023-09-17 12:34 | CT Report ---
PROCEDURE: Cervical Spine WO INDICATIONS: Neck trauma, midline tenderness TECHNIQUE: Noncontrast 3 mm thick sections acquired from the skull base to the T4 level. Sagittal and coronal r eformats were then constructed. For radiation dose reduction, the following was used: automated exp osure control, adjustment of mA and/or kV according to patient size. COMPARISON: None. FINDINGS: Image quality: Excellent. Bones: No fractures or dislocations. Visualized superior ribs are intact. Cervical spondylosis. Mu ltilevel facet arthropathy. Multilevel left greater than right bony foraminal narrowing. Soft tissues: Prevertebral soft tissues are normal in thickness. No paravertebral hematomas. No ap ical pneumothoraces. IMPRESSION: 1. No acute cervical fracture or dislocation. 2. Cervical spondylosis. Reviewed by: Michael Ag MD on 09/17/2023 12:32 PM PDT Approved by: Michael Ag MD on 09/17/2023 12:32 PM PDT Station ID: [id number]
--- NOTE | 2023-09-17 12:40 | ED Physician Documentation ---
History of Present Illness - Stated complaint Stated Complaint: GLF - Chief complaint Chief Complaint: Trauma Hd/Nk - Additonal information Additional information: 78-year-old female presents status post ground-level fall. Tripped on a piece of concrete striking the left side of her head and landing on her left arm. On Coumadin for protein S deficiency. Denies loss of consciousness. 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: Hysterectomy HEENT: Tonsil/Adenoidectomy - Present Medications Home Medications: Ambulatory Orders Medication Instructions Recorded Confirmed Diclofenac Sodium [Diclofenac 100 gm TP DAILY 02/29/16 09/17/23 Sodium 3%] Lisinopril [Zestril] 40 mg PO DAILY 02/29/16 09/17/23 Omeprazole [PriLOSEC] 20 mg PO DAILY 02/29/16 09/17/23 DULoxetine [Cymbalta] 20 mg PO DAILY 07/03/21 09/17/23 Warfarin [Coumadin] 7.5 mg PO DAILY 07/03/21 09/17/23 Amlodipine Besylate 2.5 mg PO BID 09/17/23 09/17/23 Famotidine 40 mg PO DAILY 09/17/23 09/17/23 Gabapentin [Neurontin] 400 mg PO HS 09/17/23 09/17/23 HYDROcod/ACETAM 5/325 [[place] 5/325] 1 - 2 ea PO Q6H PRN #14 tablet 09/17/23 - Allergies Allergies/Adverse Reactions: Allergies Allergy/AdvReac Type Severity Reaction Status Date / Time Iodine and Iodide Containing Allergy Unknown Verified 09/17/23 11:49 Produc - Social History Does the pt smoke?: No Smoking Status: Never smoker Does the pt drink ETOH?: No Does the pt have substance abuse?: No - Immunizations Immunizations are current?: Yes Immunizations: TDAP >10years/unknown - POLST Patient has POLST: No PD ED PE NORMAL - Vitals Vital signs reviewed: Yes - General General: Alert and oriented X 3, No acute distress, Well developed/nourished - HEENT HEENT: Atraumatic, PERRL, EOMI, Ears normal, Moist mucous membranes, Pharynx benign - Neck Neck: Supple, no meningeal sign, No bony TTP, No adenopathy, Thyroid normal, No JVD, No bruit, C-Spine cleared by NEXUS criteria - Cardiac Cardiac: RRR, No gallop - Respiratory Respiratory: No respiratory distress, Clear bilaterally - Abdomen Abdomen: Normal bowel sounds, Non tender - Female Female : Deferred, Human Resources Generalist present - Rectal Rectal: Deferred - Back Back: No CVA TTP - Derm Derm: Normal color - Extremities Extremities: No deformity - Neuro Neuro: Alert and oriented X 3, 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 2-12 intact, No motor deficit - Psych Psych: Normal mood Results - Vitals Vitals: Vital Signs - 24 hr 09/17/23 09/17/23 11:50 12:08 Temperature 36.3 C L Heart Rate 66 Respiratory 17 Rate Blood Pressure 173/74 H O2 Saturation 99 Oxygen O2 Source Room air - Labs Labs: Laboratory Tests 09/17/23 09/17/23 09/17/23 12:03 12:03 12:03 WBC 7.7 RBC 4.33 Hgb 12.8 Hct 41.3 MCV 95.4 MCH 29.6 MCHC 31.0 L RDW 13.9 Plt Count 280 MPV 9.5 Neut # (Auto) 3.6 Lymph # (Auto) 2.8 [place] # (Auto) 1.0 Eos # (Auto) 0.3 Baso # (Auto) 0.1 Absolute Nucleated RBC 0.00 Nucleated RBC % 0.0 PT 23.9 H INR 2.3 H APTT 42.9 H Sodium 138 Potassium 4.3 Chloride 103 Carbon Dioxide 29 Anion Gap 6.0 BUN 15 Creatinine 0.7 Estimated GFR (MDRD) 81 L Glucose 95 Calcium 10.6 H Total Bilirubin 0.8 AST 22 ALT 18 Alkaline Phosphatase 90 Total Protein 7.4 Albumin 4.7 Globulin 2.7 Albumin/Globulin Ratio 1.7 Lipase 27 PD Medical Decision Making - ED course Complexity details: reviewed results, re-evaluated patient ED course: 78-year-old on Coumadin for protein S deficiency presents status post ground- level fall. Alert and orientated on arrival to the emergency department. Endorsed for some left wrist tenderness however had notable normal range of motion, pulses and sensation in the left wrist and left upper extremity. Did report striking her head. No reported loss of conscious. CT head nonacute. X- rays did not show fracture. She was offered splint in the emergency department which is declined. Will write short small number of [place] for pain control and have her follow-up with primary care. Departure - Departure Clinical Impression: Ground-level fall, Chronic anticoagulation Arm pain Qualifiers: Laterality: left Qualified Code(s): M79.602 - Pain in left arm Prescriptions: HYDROcod/ACETAM 5/325 [[place] 5/325] 1 - 2 ea PO Q6H PRN #14 tablet PRN Reason: Pain Comments: Your imaging today did not show any acute traumatic injuries. Please continue to use your wrist splint at home as needed. If you do not have notable improvement in the pain in your arm within the next 7 days please return to the emergency department. I written a small number for hydrocodone-acetaminophen for use for pain control. Please be aware that this medication can cause constipation and I recommend taking a stool softener as well as increasing your intake and fiber for foods and natural probiotics while taking narcotic pain medication. This medication is also sedating and potentially habit-forming. It does increase your risk for falls. Please be extraordinarily cautious while taking this medication. It should not be used if you are operating a motor vehicle, using of the machinery or you are the sole nurse discharge planner of young children. If it anytime you have new or worsening symptoms please not hesitate to return. Forms: PCP List
[2023-09-17 13:13] VITALS: BP 141/72
== END 2023-09-17 13:12 | disposition home or self-care (01) ==
LOC: ED 11:29
DX: M79.602 Pain in left arm (principal); W01.198A Fall on same level from slipping, tripping and stumbling with subsequent striking against other object, initial encounter; J32.0 Chronic maxillary sinusitis; Z79.01 Long term (current) use of anticoagulants; I10 Essential (primary) hypertension; D68.59 Other primary thrombophilia; Z86.73 Personal history of transient ischemic attack (TIA), and cerebral infarction without residual deficits; K21.9 Gastro-esophageal reflux disease without esophagitis; M47.812 Spondylosis without myelopathy or radiculopathy, cervical region
CPT/HCPCS: 36415; 80053; 83690; 85025; 85610; 85730; 86850; 86900; 86901; 99283; 99284